=== PATIENT | female | born 1955 | race Caucasian/White ===

== ENCOUNTER → 2024-05-16 | Outpatient (CLI) | payer MEDICARE, SELFPAY ==
--- NOTE | 2024-05-16 07:42 | CT_ITS ---
STUDY: CT ABDOMEN AND PELVIS WITH CONTRAST REASON FOR EXAM: Female, 68 years old. Right lower quadrant pain. Nausea and vomiting. RADIATION DOSAGE (If Supplied By Facility): CTDIvol = ( 14.84 ) mGy, DLP = ( 483.04 ) mGycm TECHNIQUE: Transaxial images were obtained from the dome of the diaphragm to the symphysis pubis without oral contrast. IV 100mL Isovue-370 was administered. Sagittal and coronal images were reconstructed. Individualized dose optimization techniques were used for this CT. COMPARISON: None. FINDINGS: Scattered calcified granulomas in the lung bases. The visualized portions of the heart are within normal limits. Normal liver. Normal gallbladder and extrahepatic biliary system. Normal spleen. Normal pancreas. Normal bilateral adrenal glands. Normal right kidney. Normal left kidney. Normal visualized stomach. Normal small intestine. Moderate amount of fecal material is seen in the colon. The appendix is visualized and appears normal. Normal abdominal aorta. Normal inferior vena cava. Normal retroperitoneum. Normal urinary bladder. Small benign-appearing bilateral inguinal lymph nodes. There are mild degenerative changes of the visualized lumbar spine. CT/Abdomen/Pelvis W IV Cont ONLY IMPRESSION: Normal enhanced CT of the abdomen and pelvis. Electronically Signed: Varun Nath MD at 15:58 EDT ,
[2024-05-16 08:11] LABS: CREATININE FINGERSTICK < 1.0 mg/dL (0.55-1.02); EGFR FINGERSTICK > 60.0000 mL/min (>60)
== END | disposition home or self-care (01) ==
PROVIDERS: PCP Nurse Practitioner Family; Visit Provider Nurse Practitioner Family
DX: R10.31 Right lower quadrant pain (principal)
CPT/HCPCS: 74177; Q9967

== ENCOUNTER 2025-07-27 15:06 | Emergency (ER) | payer MEDICARE, SELFPAY ==
[2025-07-27 15:06] VITALS: BP 164/83; PULSE 54; RESP 14; TEMP 36.4; O2SAT 97; BMI 26.6
--- NOTE | 2025-07-27 15:38 | CT_ITS ---
PROCEDURE: ABDOMEN/PELVIS W IV CONT ONLY 07/27/2025 REASON FOR EXAM: RIGHT LOWER QUADRANT AND RIGHT INGUINAL PAIN TECHNIQUE: Procedure Code: [id number] Modality: CT Procedure: ABDOMEN/PELVIS W IV CONT ONLY Coronal and Sagittal reconstruction series were provided. CONTRAST: 100 cc of Isovue 370 intravenous contrast. One or more dose reduction techniques were used (e.g., Automated exposure control, adjustment of the mA and/or kV according to patient size, use of iterative reconstruction technique. COMPARISON: CT abdomen and pelvis 05/16/2024 FINDINGS: Lung bases: Mild dependent atelectasis Liver: Normal size. No mass. Mild diffuse hepatic steatosis. Gallbladder: Unremarkable. No biliary ductal dilatation. Spleen: Normal size. Pancreas: Normal size without evidence of mass surrounding inflammation or ductal dilation. Adrenals: Unremarkable. Kidneys: Normal renal sizes. No hydronephrosis. Bladder: Unremarkable. Reproductive Organs: Normal uterine size and contour. Ovaries are unremarkable. Bowel: No bowel obstruction. No inflammatory changes. Appendix: Normal. Lymph nodes: Unremarkable. Vasculature: The abdominal aorta and IVC are normal. Peritoneum / Retroperitoneum: No free fluid or air. Bones: Degenerative changes of the spine. No acute fractures. CT/Abdomen/Pelvis W IV Cont ONLY IMPRESSION: NO ACUTE FINDINGS AT THE ABDOMEN OR PELVIS ON CONTRAST-ENHANCED CT. Reading Location: [facility]
--- NOTE | 2025-07-27 15:39 | ED.VIS.GI ---
HPI HPI - GI History of Present Illness Chief Complaint: Abd Pain Informant: patient Abdominal Pain/Flank Pain Onset: Today Context: Gradual Onset Timing: Intermittent Quality: Aching Location: RLQ (Right lower quadrant and right inguinal intermittent pain. Currently pain-free.) Current Severity: Gone Maximum Severity: Moderate Worsened by: - (Standing up makes it more uncomfortable laying down or sitting it often resolves the pain.) Relieved by: - (Position.) Nausea/Vomiting/Emesis GI Symptom: Negative for Nausea or Vomiting Associated Symptoms Associated Symptoms: Negative for Dysuria, Frequency or Hematuria Narrative Narrative: Healthy 70-year-old female. No prior abdominal surgeries. Complaining of intermittent right lower quadrant and right inguinal abdominal discomfort with rectal pressure. Started last night, resolved this morning and again this afternoon. Denies any nausea, vomiting, diarrhea or constipation. Denies any fever or chills. Denies any weight loss. Appears to be worse standing better or resolved when supine or seated. No dysuria. No weight change. Prior similar symptoms: Yes Recent Illness/Hospitalization: No PFSH PFSH Medical History no medical history no medical history Allergy/AdvReac Type Severity Reaction Status Date / Time No Known Allergies Allergy Verified 07/27/25 15:06 Surgical History no surgical history no surgical history Social History Smoking Status: Never smoker ROS ROS ED ROS Narrative No recent illness. Abdominal pain intermittent. Constitutional Constitutional ED: Denies chills or fever(s) ENT ENT ED: Denies ear pain Cardiovascular Cardiovascular: Denies chest pain or palpitations Respiratory/Chest Respiratory/Chest: Denies cough or dyspnea Gastrointestinal Gastrointestinal: Reports abdominal pain; Denies constipation, diarrhea, melena, nausea or vomiting Genitourinary Genitourinary ED: Denies dysuria or hematuria Musculoskeletal Musculoskeletal: Denies arthralgias or back pain Integumentary Denies abscess or Abrasions Neurologic Neurologic: Denies headache(s) Psychiatric Psychiatric: Denies anxiety or depression Endocrine Endocrinology: Denies polydipsia, polyphagia or polyuria Hematologic/Lymphatic Hematologic/Lymphatic: Denies easy bleeding or easy bruising Allergic/Immunologic Allergic/Immunologic ED: Denies mouth swelling, tongue swelling or urticaria EXAM Physical Exam Narrative Exam Narrative: 70-year-old female sitting upright in bed. No distress. Vital signs are stable afebrile. at bedside. H EENT exam pupils round react to light. Moist membranes. Neck nontender no lymphadenopathy. Back nontender. Lungs clear to auscultation bilaterally. Heart regular rhythm no murmur. Chest wall ribs nontender. Abdomen soft, nontender, nondistended, normal bowel sounds without peritoneal signs. Currently completely pain-free. Deep palpation right lower quadrant shows no pain. No obvious inguinal hernia. I had her stand again no obvious hernia. There is really no significant reproducible pain. Moving all 4 extremities. Normal range of motion. Nontender no edema. With lifting her legs there is no reproducible pain in her abdomen. Patient is awake and alert. Answer questions following commands. Const Vital Signs: 07/27/25 15:06 Temperature 97.6 F L Temperature Source Temporal Pulse Rate 54 L Respiratory Rate 14 Blood Pressure 164/83 H Blood Pressure Mean 110 Pulse Ox 97 Oxygen Delivery Method Room Air Positive well nourished and well developed; Negative for obese, cachectic, contractures or unkempt General Appearance ED: well developed and NAD; Negative for unkempt, cachectic, contractures or pallor Nutritional Appearance: Negative for cachectic or obese HEENT Reports moist mucous membranes normocephalic and atraumatic Eyes PERRL and EOMs intact bilaterally Neck no lymphadenopathy, supple and no JVD Resp normal respiratory effort and clear to auscultation bilaterally Cardio regular rate, regular rhythm, S1 normal heart sound, S2 normal heart sound and no murmurs GI non-tender, non-distended and no masses GI Narrative: Nontender right lower quadrant. No inguinal hernia seen. Auscultation: normoactive bowel sounds Palpation: soft; Negative for tender, guarding, rigid, mass, pulsatile mass or rebound tenderness present Back/Spine no CVA tenderness General Back: Negative for CVA tenderness Cervical Spine: Negative for cervical spine tenderness Thoracic Spine / Upper Back: Negative for thoracic spinal tenderness Lumbar Spine / Lower Back: Negative for lumbar spinal tenderness Coccyx: Negative for other Extremity full ROM General Extremety ED: Negative for edema or tenderness General Extremity: Negative for edema Neuro CN's II-XII intact bilaterally and moves all extremities Sensorium / Orientation: alert, oriented to person, oriented to place and oriented to time; Negative for orientation impaired, confused or lethargic Motor Exam: strength 5/5 throughout Psych mental status grossly normal and thought process normal Appearance: Negative for unkempt Skin no wounds General Skin Exam: Negative for jaundice or pallor Lesions: no lesions Rashes: no rashes Trauma: Negative for abrasion Nails: Negative for discolored MDM MDM MDM Narrative Medical decision making narrative: 70-year-old female no prior abdominal surgeries. Intermittent right lower quadrant inguinal pain worse standing. Better supine or seated. Currently symptom-free. Similar episode a year ago with a negative workup. Denies any dysuria. Clinically sounds more like a hernia but I cannot palpate any hernia or see any hernia. CAT scan labs to be obtained. I do not think this is her appendix because she is completely nontender to deep palpation. She has no urinary symptoms I doubt UTI or stone. Repeat exam at 5:16 PM unchanged. Abdomen benign. I went over test results with patient and her . She will be discharged home with outpatient follow-up. We do not have a specific cause for her pain. History & Record Review Discussion w/independent historian: Patient and Family Additional record(s) reviewed:: Prior inpatient record, Prior outpatient record, Prior ED visit and Prior labs Lab Data Attestation: I reviewed the patient's lab results. Lab results narrative: CBC unremarkable. White count is 6. H&H of 14 and 41. Platelets 233. Chemistries were unremarkable gap 11. BUN and creatinine 22 and 0.8. Glucose 797. Liver enzymes normal. UA showed occult blood. CAT scan was negative. Labs: Laboratory Results - last 24 hr 07/27/25 07/27/25 15:24 16:08 WBC 6.7 RBC 4.34 Hgb 14.1 Hct 41.5 MCV 95.6 MCH 32.5 H MCHC 34.0 RDW Std Deviation 45.6 H RDW Coeff of Jonny 12.9 Plt Count 233 MPV 10.8 Immature Gran % (Auto) 0.300 Neut % (Auto) 57.0 Lymph % (Auto) 31.4 [place] % (Auto) 8.4 Eos % (Auto) 2.4 Baso % (Auto) 0.5 Absolute Neuts (auto) 3.8 Absolute Lymphs (auto) 2.09 Nucleated RBC % 0 Sodium 138 Potassium 4.3 Chloride 104 Carbon Dioxide 22.8 Anion Gap 11 BUN 22 H Creatinine 0.87 Estim Creat Clear Calc 48.77 L Est GFR (MDRD) Non-Af 71 BUN/Creatinine Ratio 25.3 H Glucose 97 Calcium 9.2 Total Bilirubin 0.35 AST 21 ALT 23 Alkaline Phosphatase 68 Total Protein 6.8 Albumin 4.2 Globulin 2.6 Albumin/Globulin Ratio 1.6 Urine Color Yellow Urine Clarity Sl. Cloudy Urine pH 5.0 Ur Specific [place] 1.020 Urine Protein 15 H Urine Glucose (UA) Normal Urine Ketones Negative Urine Occult Blood 150 H Urine Nitrite Negative Urine Bilirubin Negative Urine Urobilinogen Normal Ur Leukocyte Esterase 25 H Radiography Diagnostic Testing: Clinical Impression(s) from Imaging Studies Abdomen/Pelvis CT 07/27/25 15:38 IMPRESSION: NO ACUTE FINDINGS AT THE ABDOMEN OR PELVIS ON CONTRAST-ENHANCED CT. Reading Location: [facility] Discharge Plan Triage Chief Complaint: Abd Pain ED Provider: Kayden Scanlon Dx/Rx/DC Orders Clinical Impression: Abdominal pain Instructions: Abdominal Pain Primary Care Provider: Louise Poole Referrals: Louise Poole, [facility] [Primary Care Provider, Family Practice] - As Needed Activity Restrictions/Additional Instructions: Your CAT scan the labs are unremarkable. This could be a hernia but is not seen at this time on exam or the CAT scan. Follow-up with primary care provider as needed. Print Language: Welsh Disposition Disposition: Home, Self Care
[2025-07-27 16:11] LABS: Hematocrit 41.5 % (37-47); Hemoglobin 14.1 g/dL (12.0-15.0); Immature Granulocytes Count 0.020 X10^3/uL (0.0-0.0); Mean Corp Hgb Conc 34.0 g/dL (32-36); Mean Corpuscular Volume 95.6 fL (81-99); Mean Platelet Vol. 10.8 fl (6.2-12.0); NRBC Flagged by Analyzer 0 % (0-5); Platelet Count 233 K/mm3 (150-450); RBC Distribution Width CV 12.9 % (11.6-14.6); RBC Distribution Width SD 45.6 fl (35.1-43.9); Red Blood Count 4.34 M/mm3 (4.2-5.4); White Blood Count 6.7 K/mm3 (4.4-11.0)
[2025-07-27 16:12] LABS: Mucous, Urine 0 SEEN /hpf (<or=2+)
[2025-07-27 16:24] LABS: AST(SGOT) 21 U/L (<=31); Alanine Aminotransfer ALT/SGPT 23 U/L (<=34); Albumin, Serum 4.2 g/dL (3.4-4.8); Alkaline Phosphatase 68 U/L (35-104); Anion Gap 11 (5-15); BUN 22 mg/dL (4-19); BUN/Creat Ratio 25.3 RATIO (10-20); Calcium,Total 9.2 mg/dL (7.6-11.0); Carbon Dioxide 22.8 mmol/L (21.0-32.0); Chloride 104 mmol/L (98-108); Estimated Creatinine Clearance 48.77 ml/min (50-250); Globulin 2.6 g/dL (2.2-4.2); Glucose 97 mg/dL (70-99); Potassium 4.3 mmol/L (3.3-5.1)
[2025-07-27 16:50] LABS: Color, Urine Yellow (Yellow); Glucose, Dipstick Normal (Normal); Ketone-Dipstick Negative (Negative); Leukocyte Esterase-Dipstick 25 /ul (Negative); Nitrite-Dipstick Negative (Negative); Occult Blood-Urine 150 /ul (Negative); Protein-Dipstick 15 mg/dl (Negative); Specific Gravity, Urine 1.020 (1.002-1.030); Urine Bilirubin Dipstick Negative (Negative)
[2025-07-27 17:06] VITALS: PULSE 62; RESP 18; O2SAT 98
[2025-07-27 18:39] LABS: Red Blood Cells-Urine 5-10 SEEN /hpf (0-5); Squamous Epithelial Cells - UA 0-5 SEEN /hpf (5-10)
== END 2025-07-27 17:25 | disposition home or self-care (01) ==
PROVIDERS: Emergency Provider Emergency Medicine; PCP Nurse Practitioner Family; Visit Provider Emergency Medicine
DX: R10.31 Right lower quadrant pain (principal); R10.A0 Flank pain, unspecified side
CPT/HCPCS: 74177; 80053; 81001; 85025; 99283; Q9967; A4216